=== PATIENT | male | born 1990 | race Caucasian/White ===

== ENCOUNTER 2019-07-06 12:36 | Emergency (ER) | payer MEDICAID, SELFPAY ==
[2019-07-06 12:41] VITALS: PULSE 75; RESP 16; TEMP 36.6; O2SAT 100
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
[2019-07-06 13:45] VITALS: BP 120/82; PULSE 72; RESP 16; TEMP 36.6; O2SAT 100
== END 2019-07-06 13:38 | disposition home or self-care (01) ==
LOC: ER 13:45
PROVIDERS: Emergency Provider Physician Assistant
DX: S01.511A Laceration without foreign body of lip, initial encounter (principal); S20.311A Abrasion of right front wall of thorax, initial encounter; S30.810A Abrasion of lower back and pelvis, initial encounter; M79.662 Pain in left lower leg; S40.811A Abrasion of right upper arm, initial encounter; V86.55XA Driver of 3- or 4- wheeled all-terrain vehicle (ATV) injured in nontraffic accident, initial encounter
CPT/HCPCS: 99282

== ENCOUNTER 2024-05-30 01:27 | Outpatient (CLI) | payer MEDICAID, SELFPAY ==
[2024-05-30 10:01] LABS: HCT 43.3 % (40.0-50.0); HGB 15.6 g/dL (13.5-17.5); MCH 30.9 pg (27.0-33.0); MCV 86 fL (80-95); MPV 8.8 fL (8.0-11.0); Platelet Count 217 10^3/uL (130-400); RBC 5.05 10^6/uL (4.36-5.78); RDW 11.2 % (11.8-14.1); RDW-SD 34.9 fL; WBC 8.82 10^3/uL (4.4-10.8)
[2024-05-30 10:17] LABS: ALT 30 U/L (16-63); AST 22 U/L (15-37); Albumin 3.9 g/dL (3.4-5.0); Alkaline Phosphatase 81 U/L (46-116); Anion Gap 11.8 mmol/L (3-11); BUN 18 mg/dL (7-18); Bilirubin, Total 0.93 mg/dL (0.2-1.0); CO2 25.2 mmol/L (21.0-32.0); Calculated LDL 145 mg/dL (<100); Chloride 102 mmol/L (98-107); Cholesterol 203 mg/dL (<200); Estimated GFR 102.55 (mL/min/1.73m2); Glucose 102 mg/dL (74-106); HDL Cholesterol 50 mg/dL (40-60); Sodium 139 mmol/L (136-145); Total Protein 8.1 g/dL (6.4-8.2); Triglyceride 44 mg/dL (<150)
== END 2024-05-30 01:28 | disposition home or self-care (01) ==
LOC: LBO 01:27
PROVIDERS: PCP Nurse Practitioner; Visit Provider Nurse Practitioner
DX: Z13.220 Encounter for screening for lipoid disorders (principal); M79.662 Pain in left lower leg
CPT/HCPCS: 36415; 80053; 80061; 85027; 83735